=== PATIENT | female | born 1940 | race Caucasian/White ===

== ENCOUNTER → 2020-09-25 13:31 | Outpatient (CLI) | payer MEDICARE, SELFPAY ==
--- NOTE | 2020-09-25 | DI.US.S_ITS ---
PROCEDURE: US BREAST RT LIMITED COMPARISON: None. INDICATIONS: RIGHT BREAST PALPABLE FINDINGS: IMPRESSION: Dictated by: Jacquie Mandel MD, PhD on 10/08/2020 at 14:56 Approved by: Jacquie Mandel MD, PhD on 10/08/2020 at 14:56
--- NOTE | 2020-09-25 | DI.MG.S_ITS ---
BILATERAL DIGITAL DIAGNOSTIC MAMMOGRAM 3D/2D: 09/25/2020 CLINICAL: Right breast mass. Baseline exam. No prior exams were available for comparison. The tissue of both breasts is heterogeneously dense. This may lower the sensitivity of mammography. There is an irregular asymmetry with an indistinct margin and grouped pleomorphic calcifications in the right breast at 11 o'clock posterior depth. This correlates as palpated, with area of clinical concern, and skin marker. There is architectural distortion associated with the asymmetry. No other significant masses, calcifications, or other findings are seen in either breast. IMPRESSION: INCOMPLETE: NEEDS ADDITIONAL IMAGING EVALUATION The irregular asymmetry in the right breast is indeterminate. An ultrasound is recommended for further evaluation and is scheduled to immediately follow this examination. This exam was interpreted at Station ID: [id number]. NOTE: For mammograms, a report in lay terms will be sent to the patient. Approximately 15% of breast malignancies will not be visualized mammographically. In the management of a palpable breast mass, a negative mammogram must not discourage biopsy of a clinically suspicious lesion. Electronically Signed By: Ponce Garcia M.D. aty/:09/25/2020 15:49:55 ACR BI-RADS Category 0: Incomplete [id number]
== END ==
PROVIDERS: PCP Family Medicine; Referring Provider Nurse Practitioner Family; Visit Provider Nurse Practitioner Family
DX: N63.11 Unspecified lump in the right breast, upper outer quadrant; R59.0 Localized enlarged lymph nodes
CPT/HCPCS: 76642; 77066; G0279

== ENCOUNTER → 2020-10-08 12:51 | Outpatient (CLI) | payer MEDICARE, SELFPAY ==
--- NOTE | 2020-10-08 | DI.US.S_ITS ---
ULTRASOUND GUIDED BIOPSY RIGHT BREAST USING VACUUM DEVICE WITH MARKING DEVICE INSERTED AND POST MAMMOGRAPHIC IMAGIN10/08/2020 CLINICAL: Right axillary node biopsy. PATIENT CONSENT: Risks (minor bleeding, infection, vasovagal reaction and repeat procedure), benefits and alternatives were explained to the patient and written informed consent was obtained. Correlation is made to exams dated: 09/25/2020 ultrasound, 09/25/2020 mammogram, 10/08/2020 ultrasound biopsy, 10/08/2020 ultrasound biopsy, and 10/08/2020 mammogram - [facility]. An ultrasound guided biopsy using real-time ultrasound was performed for the irregular shaped mass located in the right breast at 10 o'clock middle depth. This was described on the previous ultrasound report. The skin was prepped in the usual manner. Local anesthetic was administered to the access site. A skin michael was made in the breast. The abnormality was approached from the lateral aspect. A 13 gauge biopsy needle was placed adjacent to the abnormality under ultrasound guidance. Once the needle was documented to be in the correct location, three specimens were obtained using the Mammotome biopsy system. A vision biopsy clip was inserted into the biopsy cavity. Post procedure mammographic imaging demonstrates the location device resides in the targeted area. The specimens were sent to the laboratory for pathological analysis. IMPRESSION: ULTRASOUND GUIDED BIOPSY MALIGNANT Ultrasound guided biopsy of the mass in the right breast at 10 o'clock middle depth was successful. Pathology indicates malignant invasive ductal carcinoma (ID). Pathology results are concordant with imaging findings. A surgical/oncologic consultation is recommended. This exam was interpreted at Station ID: [id number]. Jacquie Adamson M.D. [facility] [place]/:10/14/2020 11:23:12
--- NOTE | 2020-10-08 | PATH_ITS ---
[facility] Accession Number: [id number] . 01 Material submitted: . PART A: breast - RIGHT BREAST MASS 10:00 8CMFN PART B: breast - RIGHT AXILLARY LYMPH NODE . 01 Diagnosis: A. Right Breast Mass, 10 o'clock, 8 cm from the Nipple, Biopsy: Invasive (ductal) carcinoma, grade 3 of 3 ([place] combined histologic grade, total score 9/9), with the following features: 1. Nuclear pleomorphism: High. (3/3) 2. Mitotic rate: High. (3/3) 3. Tubular differentiation: None. (3/3) 4. Size of invasive carcinoma: Present on four cores, single largest dimension of at least 8 mm in this sample. 5. Ductal carcinoma in situ: Absent. 6. Calcifications: Absent. 7. Lymphatic invasion: Absent in this specimen. 8. Prognostic markers: - Estrogen receptor status: Positive (>98%, Strong). - Progesterone receptor status: Positive (>85%, Intermediate). - HER2 status: Negative for protein overexpression by immunohistochemistry (0). . B. Designated as Right Axillary Lymph Node, Biopsy: Carcinoma involving fibrous tissue. No lymph node tissue identified; see comment. . COMMENT: B. The carcinoma in parts A and B are histologically similar. [facility] 10/11/2020 1441 Local . 01 Electronically signed: Neo Garcia MD, Pathologist NPI- [id number] . 01 Gross description: . Received in two formalin-filled containers, both labeled with the patient's name. . A. In a container labeled RT #1 breast 10 o'clock, the specimen is received with a plastic filter in container, sample loose in container and consists of four yellow-lewis, cylindrical-shaped portions of tissue with an average diameter of 0.1-0.3 cm and range in length from 0.4 cm to 0.8 cm. The specimen is entirely submitted in cassette A. B. In a container labeled #2, are two fragments of light thomas-lewis tissue that range in size from 0.1 x 0.1 x 0.1 cm to 0.4 x 0.1 x 0.1 cm, totally submitted in cassette B. . Possible collection date and time per requisition: 10/08/20 at 1418. Total fixation time: Approximately 14 hours. ([id number]) /[place] 10/09/2020 0228 Local . 01 Microscopic: . An immunohistochemical panel is performed on block A1 in order to assess the invasive carcinoma, with appropriately staining external controls. The invasive carcinoma shows the following immunoprofile: . GATA3: Positive. GCDFP-15: Negative. Mammaglobin: Variably positive. E-cadherin: Positive (membranous staining pattern, arguing against lobular phenotype). Beta-catenin: Positive (membranous staining pattern, arguing against lobular phenotype). . Predictive marker immunohistochemical studies are performed on block A1 with the invasive carcinoma showing the following results: . Estrogen receptor (SP1): Positive (more than 98% of tumor cells, Strong staining intensity). Progesterone receptor (1E2): Positive (more than 85% of tumor cells, Intermediate staining intensity). Her2 (4B5): Negative for overexpression by immunohistochemistry (0). . Internal controls for ER and MI: Not applicable (normal breast tissue is not seen). Cold ischemic time is <5 minutes. The scoring criteria for breast biomarkers by immunohistochemistry is based on the ASCO/CAP guidelines (Oniel AC et al, J Clin Oncol: 2018 Jan 18;36(20):6445-4987 and Caitlyn ME et al, Arch Pathol Lab Med: 2009;134(6):907-22). Deparaffinized sections of formalin fixed tissue (along with appropriate positive controls) are incubated with the above antibody(s). Using the automated [place] stainer, tissue is incubated with the designated antibody which is then localized by a non-biotin, dual polymer detection system. The external controls are reviewed for appropriate reactivity and found to be adequate. Results on the target cell population are indicated above. These tests have not been validated on decalcified tissue. This test was developed and its performance characteristics determined by [facility]. It has not been cleared or approved by the U.S. Food and Drug Administration. The FDA has determined that such clearance or approval is not necessary. This test is used for clinical purposes. It should not be regarded as investigational or for research. . 01 Pathologist provided ICD-10: C50.911 . 01 CPT . 899962, 976049, K81878, E97948, 239872, 297252, 469759 Performed at: [address] [id number] MD Max Christianson MD Phone: [phone]
--- NOTE | 2020-10-08 | DI.US.S_ITS ---
ULTRASOUND GUIDED BIOPSY RIGHT BREAST WITH MARKING DEVICE INSERTED AND POST DIGITAL MAMMOGRAPHIC IMAGIN10/08/2020 CLINICAL: Right breast mass. PATIENT CONSENT: Risks (minor bleeding, infection, vasovagal reaction and repeat procedure), benefits and alternatives were explained to the patient and written informed consent was obtained. Correlation is made to exams dated: 09/25/2020 ultrasound, 09/25/2020 mammogram, 10/08/2020 ultrasound biopsy, and 10/08/2020 mammogram - [facility]. An ultrasound guided biopsy using real-time ultrasound was performed for the oval lymph node located in the right axillary tail. This was described on the previous ultrasound report. The skin was prepped in the usual manner. Local anesthetic was administered to the access site. A skin michael was made in the breast. A 20 gauge biopsy needle was placed adjacent to the abnormality under ultrasound guidance. Once the needle was documented to be in the correct location, four specimens were obtained using 20 gauge Tem[place] biopsy needle. A Vision biopsy clip was inserted into the biopsy cavity. A skin adhesive and a sterile dressing were applied to the access site. Post procedure digital mammographic imaging demonstrates the location device at the targeted area. The specimens were sent to the laboratory for pathological analysis. IMPRESSION: ULTRASOUND GUIDED BIOPSY MALIGNANT Ultrasound guided biopsy of the lymph node in the right axillary tail was successful. Pathology indicates Carcinoma involving fibrous tissue. No lymph node tissue identified; see comment. Pathology results are concordant with imaging findings. A surgical/oncologic consultation is recommended. This exam was interpreted at Station ID: [id number]. Jacquie Adamson M.D. [facility] [place]/:10/14/2020 11:30:37
--- NOTE | 2020-10-08 | DI.MG.S_ITS ---
UNILATERAL RIGHT DIGITAL DIAGNOSTIC MAMMOGRAM POST-NEEDLE BIOPSY: 10/08/2020 CLINICAL: Right breast mass and axillary lymphadenopathy. Comparison is made to exams dated: 09/25/2020 ultrasound and 09/25/2020 mammogram - [facility]. The tissue of right breast is heterogeneously dense. This may lower the sensitivity of mammography. There is a marker clip in the appropriate position in the right breast at 10 o'clock middle depth. This marker clip placement is at the biopsy site. This correlates with ultrasound findings. Marker clip placed at right axillary lymph node biopsy site cannot be imaged by mammography due to the far posterior position of the node in the right axilla. Ultrasound evaluation demostrated the clip at the node biopsy site IMPRESSION: POST PROCEDURE MAMMOGRAM FOR MARKER PLACEMENT There was a successful marker clip placement in the right breast middle depth at site of breast biospy. Marker clip placed at site of right axillary node biopsy is not identified by mammography. This exam was interpreted at Station ID: [id number]. NOTE: For mammograms, a report in lay terms will be sent to the patient. Approximately 15% of breast malignancies will not be visualized mammographically. In the management of a palpable breast mass, a negative mammogram must not discourage biopsy of a clinically suspicious lesion. Electronically Signed By: Jacquie Mandel M.D. [facility] [place][note 2]/:10/08/2020 14:52:55 ACR BI-RADS Category Post-procedure mammogram for marker placement
== END ==
PROVIDERS: PCP Family Medicine; Referring Provider Nurse Practitioner Family; Visit Provider Nurse Practitioner Family
DX: C50.911 Malignant neoplasm of unspecified site of right female breast (principal)
CPT/HCPCS: 19083; 38505; 76942; 77065

== ENCOUNTER 2021-09-29 19:15 | Emergency (ER) | payer MEDICARE, SELFPAY ==
[2021-09-29] VITALS (10 sets, daily range): BP systolic 112–169; BP diastolic 55–80; PULSE 72–92; RESP 18; TEMP 36.3; O2SAT 88–100; BMI 23.6
--- NOTE | 2021-09-29 19:19 | DI.RAD.S_ITS ---
PROCEDURE: XR SHOULDER RT MIN 2V INDICATIONS: Trauma, fall with pain TECHNIQUE: 3 views of the shoulder were acquired. COMPARISON: None. FINDINGS: There is a spiral fracture of the humeral diaphysis in addition to comminuted fractures in the proximal humeral metadiaphysis including fractures in the surgical neck which may extend into the articular surface. There is a suspected lucency representing fracture also involving the inferior glenoid. IMPRESSION: Multiple fractures of the humerus including a spiral displaced fracture of the humeral diaphysis and a more proximal comminuted humeral neck fracture. Suspected glenoid fracture. Dictated by: Shankar Betancourt M.D. on 09/29/2021 at 19:51 Approved by: Shankar Betancourt M.D. on 09/29/2021 at 19:52
--- NOTE | 2021-09-29 19:19 | DI.RAD.S_ITS ---
PROCEDURE: XR ELBOW RT MIN 3V INDICATIONS: Trauma, fall with elbow pain TECHNIQUE: 3 views of the elbow were acquired. COMPARISON: None. FINDINGS: Limited study with no true lateral view of the elbow. Spiral fracture of the humeral diaphysis and partially visualized comminuted proximal humerus fractures involving the humeral head and neck. IMPRESSION: No acute pathology in the elbow identified, with caveat that this exam is of limited diagnostic utility with regard to the elbow. Humerus fractures as described separately. Dictated by: Shankar Betancourt M.D. on 09/29/2021 at 19:58 Approved by: Shankar Betancourt M.D. on 09/29/2021 at 19:58
--- NOTE | 2021-09-29 19:21 | ED.FALL ---
HPI - Fall General Chief Complaint: Fall Stated Complaint: GLF Time Seen by Provider: 09/29/21 19:19 History of Present Illness HPI Narrative: 81F nonsmoker with a history of CAD presents by [facility] for evaluation of a ground level fall resulting in R arm injury. She states that she was working with some laundry when she turned and tripped and fell on something on the ground and landed on her right shoulder. She denies any prodromal symptoms such as dizziness, weakness or lightheadedness. She denies any head neck or back injury. She has significant pain in her right upper arm with any range of motion but it improves when she does not move. She is activated as a modified trauma given her age and suspicion of injury Related Data Home Medications Medication Instructions Recorded Confirmed ASPIRIN (Aspirin EC) 81 mg PO BID #0 05/21/11 omega 8-irh-iia-fish oil 1,000 mg 1,000 mg TID #0 05/21/11 (120 mg-180 mg) capsule (Fish Oil) CHOLECALCIFEROL (VITAMIN D) 2,300 units PO QDAY #0 02/10/13 vitamin E 400 unit capsule 400 unit PO QDAY #0 11/03/16 [TUMERIC] #0 01/18/17 multivitamin (Multiple Vitamins) 1 tab PO QDAY #0 01/18/17 Previous Rx's Medication Instructions Recorded levothyroxine 75 mcg tablet 0.075 mg PO QAM #45 tab 01/19/17 (Synthroid) nitroglycerin 0.4 mg sublingual 0.4 mg SUBLINGUAL PRN #100 odt 03/22/17 tablet (Nitrostat) hydrocodone 5 mg-acetaminophen 325 1 tab PO Q4-6H PRN #20 tab 09/30/21 mg tablet Allergies Allergy/AdvReac Type Severity Reaction Status Date / Time risedronate sodium Allergy Severe MYALGIAS Verified 09/29/21 22:12 Review of Systems Review of Systems Narrative: GENERAL: Denies chills, fatigue, malaise, fever, sweats. HEENT: Denies sinus pain, ear pain, sore throat, difficulty swallowing, dizziness. RESPIRATORY: Denies dyspnea, cough, wheezing, hemoptysis, sputum. CARDIOVASCULAR: Denies chest pain, palpitations, orthopnea, edema, GASTROINTESTINAL: Denies nausea, vomiting, abdominal pain, diarrhea, constipation, melena. : Denies dysuria, frequency, incontinence, hematuria, urinary retention. MUSCULOSKELETAL: see HPI SKIN: Denies rash, skin lesions, or other NEUROLOGIC: Denies weakness, headache, numbness, change in speech, confusion, seizures, incoordination. PSYCHIATRIC: No concerning psychosocial issues. 12 point review of systems is negative except for those stated above Patient History Surgical History History of cataract removal with insertion of prosthetic lens History of cataract removal with insertion of prosthetic lens History of tonsillectomy Family History Father Diabetes mellitus Mental health problem Grandfather Heart disease Macular degeneration Mother Heart disease Hypertension High cholesterol Macular degeneration Sister Age: 89 Diabetes mellitus Stroke Exam Narrative Exam Narrative: GENERAL: [81 year old patient appears stated age. Well-developed patient, in mild distress. GCS 15 HEAD: Atraumatic. Normocephalic. EYES: Pupils equal round and reactive. Extraocular motions intact. No scleral icterus. No injection or drainage. ENT: Nose without bleeding, purulent drainage. Throat without erythema, tonsillar hypertrophy or exudate. Airway patent. NECK: Trachea midline. Non tender CARDIOVASCULAR: Regular rate and rhythm without murmurs, gallops, or rubs. RESPIRATORY: Clear to auscultation. Breath sounds equal bilaterally. No wheezes, rales, or rhonchi. GASTROINTESTINAL: Abdomen soft, non-tender, nondistended. EXTREMITIES: Right upper extremity with mild swelling, significantly tender to palpate in proximal and midshaft humerus, tenderness and elbow as well, no pain or swelling in forearm, wrist or fingers. She has full strength with abduction of fingers and wrist extension. Sensation is intact. Compartments are soft BACK: Nontender without deformity or crepitance. No flank tenderness. NEURO: AOx3. SKIN: No rash or erythema of visible areas Initial Vital Signs Initial Vital Signs: Vital Signs Temperature 97.4 F L 09/29/21 19:32 Pulse Rate 77 09/29/21 19:32 Respiratory Rate 18 09/29/21 19:32 Blood Pressure 169/72 H 09/29/21 19:32 Pulse Oximetry 100 09/29/21 19:32 Procedures Orthopedic Splinting/Casting Injury #1: Side: right Upper Extremity Injury Location: shoulder and upper arm Upper Extremity Immobilizer: sling/shoulder immobilizer and sugar tong splint (coaptation) Post splinting neuro exam: intact Post splinting vascular exam: intact Placed by: Nursing Course Orders Ordered: Discontinued Medications Hydromorphone HCl (Hydromorphone 0.5 Mg Inj) 0.5 mg IV NOW ONE Stop: 09/29/21 20:57 Last Admin: 09/29/21 21:00 Dose: 0.5 mg Documented by: VALORIE Ondansetron HCl (Ondansetron 4 Mg Odt) 4 mg SL NOW ONE Stop: 09/30/21 07:21 Last Admin: 09/30/21 07:26 Dose: 4 mg Documented by: ABILIO Oxycodone/Acetaminophen (Oxycodone/Acetaminophen 5/325 Tablet) 1 tab PO NOW ONE Stop: 09/29/21 22:51 Last Admin: 09/30/21 07:32 Dose: Not Given Documented by: ABILIO Consultations Consultation #1: discussed with public relations analyst ortho (Radha). He has reviewed history, physical, and images. Recommends coaptation splint, sling, pain medications, return precautions and follow up instructions for his office. Vital Signs Vital signs: Vital Signs - 8 hr 09/29/21 23:00 09/29/21 23:30 09/30/21 00:00 Pulse Rate 76 76 76 Blood Pressure 108/53 L Pulse Oximetry 88 L 95 97 09/30/21 00:30 09/30/21 01:06 09/30/21 01:30 Pulse Rate 71 72 73 Blood Pressure Pulse Oximetry 100 96 97 09/30/21 02:00 09/30/21 02:30 09/30/21 03:00 Pulse Rate 74 72 78 Blood Pressure Pulse Oximetry 98 97 95 09/30/21 03:30 09/30/21 04:00 09/30/21 04:30 Pulse Rate 69 74 74 Blood Pressure 112/55 L Pulse Oximetry 98 97 96 09/30/21 05:00 09/30/21 05:30 09/30/21 06:00 Pulse Rate 82 80 83 Blood Pressure Pulse Oximetry 97 97 97 MDM - Fall Lab Data Result diagrams: 09/29/21 20:47 09/29/21 20:47 Labs: Lab Results 03/09/29/21 09/29/21 Range/Units 20:15 20:47 20:47 WBC 9.7 (4.5-11.0) X10^3/uL RBC 4.86 (4.0-5.2) X10^6/uL Hgb 13.5 (12.0-16.0) g/dL Hct 40.8 (36-46) % MCV 83.9 (80-100) fL MCH 27.8 (26-34) PG MCHC 33.2 (30-36) % RDW 14.0 (11.6-14.8) % Plt Count 180 (150-400) X10^3/uL Neut % (Auto) 83.2 H (50-75) % Lymph % (Auto) 10.5 L (25-40) % [place] % (Auto) 5.9 (3-14) % Eos % (Auto) 0.1 L (2-4) % Baso % (Auto) 0.3 (0-2) % Neut # (Auto) 8100 H (8514-3388) /uL Lymph # (Auto) 1000 L (4475-4860) /uL [place] # (Auto) 600 (0-900) /uL Eos # (Auto) 0 (0-450) /uL Baso # (Auto) 0 (0-100) /uL Sodium 136 L (137-145) mmol/L Potassium 3.4 (3.4-5.1) mmol/L Chloride 103 (98-107) mmol/L Carbon Dioxide 25 (22-32) mmol/L BUN 18 H (7-17) mg/dL Creatinine 0.64 (0.52-1.04) mg/dL Estimated GFR > 60.0 (>60) mL/min BUN/Creatinine Ratio 28.1 H (6-22) Glucose 132 H (80-110) mg/dL Calcium 9.7 (8.4-10.2) mg/dL Total Bilirubin 0.6 (0.2-1.3) mg/dL AST 31 (14-36) IU/L ALT 23 (<35) IU/L Alkaline Phosphatase 70 (38-126) U/L Total Protein 7.3 (6.3-8.2) g/dL Albumin 4.5 (3.5-5.0) g/dL Globulin 2.8 (1.7-4.1) g/dL Albumin/Globulin Ratio 1.6 (1.0-2.8) SARS-CoV-2 (PCR) Negative (Negative) Imaging Data Extremity x-ray #1: Radiologist's Impression: [address] [address] XRay Report Signed Patient: Judith Anderson MR#: [id number] : 1940 Acct:[id number] Age/Sex: 81 / F Date of Service: 09/29/21 Loc: ED Accession Number: [id number] ?? Procedure: XR shoulder RT min 2V Ordering Provider: Clarence Michele D.O. PROCEDURE:? XR SHOULDER RT MIN 2V ? INDICATIONS:? Trauma, fall with pain ? TECHNIQUE:? 3 views of the shoulder were acquired.? ? COMPARISON:? None. ? FINDINGS:? ? There is a spiral fracture of the humeral diaphysis in addition to comminuted fractures in the proximal humeral metadiaphysis including fractures in the surgical neck which may extend into the articular surface.? There is a suspected lucency representing fracture also involving the inferior glenoid. ? IMPRESSION: ? Multiple fractures of the humerus including a spiral displaced fracture of the humeral diaphysis and a more proximal comminuted humeral neck fracture. ? Suspected glenoid fracture.? ? Dictated by: Shankar Betancourt M.D. on 09/29/2021 at 19:51 ? ? Approved by: Shankar Betancourt M.D. on 09/29/2021 at 19:52 ? MDM Narrative Medical decision making narrative: Patient with ground level fall resulting in complex with right humeral fracture. She is observed over the course of the night and has no evidence of compartment syndrome or radial nerve injury. Frequent checks resulted in intact sensation, strength, ability to extend at the wrist. I have been in contact with orthopedist for recommendations regarding splinting, suggest discharge with follow-up. Return precautions discussed and questions answered to their apparent satisfaction Discharge Plan Departure Patient Disposition: Home Clinical Impression: Fracture, humerus Instructions: Humeral Shaft Fracture Activity Restrictions/Additional Instructions: *You have been diagnosed with [right proximal humerus and midshaft fracture with comminution and displacement *What to do: *Please continue to take your regular medications as directed. [ x] New medication prescriptions sent to your pharmacy: [ ] [ ] New medication written as a paper prescription [x] Tylenol and occasional Motrin for pain *Please follow up with [Radha] of [facility] in 2-3 days, call for an appointment. Let them know you were seen in the Emergency Department and that we ask that you be seen in follow up. We will electronically transmit a record of today's note if your PCP is in our system *Return to Emergency Department if you should have any new, worsening or concerning symptoms, such as [worsening pain, significant swelling, cold extremities, numbness, tingling, weakness or other bothersome symptoms Splint Care: Keep splint clean and dry. Elevated affected body part to decrease swelling. OK to use ice pack on the affected body part. Use for 15-20 minutes each time, for 5-6x per day. If you develop worsening pain, numbness, tingling, discoloration of the affected body part, loosen the splint by loosening the BRITTNEY wrap, and either see your doctor for an urgent re-assessment, or return to the Emergency Department. Return to the Emergency Department for any new or worsening symptoms. You have been prescribed a short course of narcotic medications. These are potentially dangerous and addictive medications that should be used carefully. While on these medications you cannot drive or operate heavy machinery. Additionally, you cannot sign legal documents or perform any duties such as this. 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 Please understand that we cannot provide further refills of narcotics or controlled substances through the ED and your pain management will need to be through your Primary Care Provider Prescriptions: New hydrocodone-acetaminophen 5-325 mg tablet 1 tab PO Q4-6H PRN (Reason: pain) Qty: 20 0RF No Action ASPIRIN (Aspirin EC) 81 mg PO BID Qty: 0 0RF omega 8-qiv-jmi-fish oil [Fish Oil] 1,000 MG capsule 1,000 mg TID Qty: 0 0RF CHOLECALCIFEROL (VITAMIN D) 2,300 units PO QDAY Qty: 0 0RF vitamin E 400 UNIT capsule 400 unit PO QDAY Qty: 0 0RF multivitamin [Multiple Vitamins] 1 EACH tablet 1 tab PO QDAY Qty: 0 0RF [TUMERIC] Qty: 0 0RF levothyroxine [Synthroid] 75 MCG tablet 0.075 mg PO QAM Qty: 45 0RF nitroglycerin [Nitrostat] 0.4 MG tablet, sublingual 0.4 mg Sublingual PRN Qty: 100 0RF Referrals: Flakito Garcia MD [Physician] - Dillan Kurtz MD [Physician] -
[2021-09-29 20:56] LABS: Add Manual Diff / Slide Review NO; Basophils Absolute Auto 0 /uL (0-100); Basophils Percent Auto 0.3 % (0-2); Eosinophils Absolute Auto 0 /uL (0-450); Eosinophils Percent Auto 0.1 % (2-4); Hematocrit 40.8 % (36-46); Hemoglobin 13.5 g/dL (12.0-16.0); Lymphocytes Absolute Auto 1000 /uL (1100-4500); Lymphocytes Percent Auto 10.5 % (25-40); Mean Corpuscular HGB Conc 33.2 % (30-36); Mean Corpuscular Hemoglobin 27.8 PG (26-34); Mean Corpuscular Volume 83.9 fL (80-100); Monocytes Absolute Auto 600 /uL (0-900); Monocytes Percent Auto 5.9 % (3-14); Neutrophils Absolute Auto 8100 /uL (1500-7000); Neutrophils Percent Auto 83.2 % (50-75); Platelet Count 180 X10^3/uL (150-400); Red Blood Cell Count 4.86 X10^6/uL (4.0-5.2); White Blood Cell Count 9.7 X10^3/uL (4.5-11.0)
[2021-09-29 20:59] LABS: COVID19 -Nasal RAPID Negative (Negative)
[2021-09-29] MEDS: HYDROMORPHONE 0.5 MG INJ IV (21:00)
[2021-09-29 21:17] LABS: Alanine Aminotransferase 23 IU/L (<35); Albumin 4.5 g/dL (3.5-5.0); Albumin Globulin Ratio 1.6 (1.0-2.8); Alkaline Phosphatase 70 U/L (38-126); Aspartate Aminotransferase 31 IU/L (14-36); BUN Creatinine Ratio 28.1 (6-22); Bilirubin Total 0.6 mg/dL (0.2-1.3); Blood Urea Nitrogen 18 mg/dL (7-17); Calcium 9.7 mg/dL (8.4-10.2); Carbon Dioxide 25 mmol/L (22-32); Chloride 103 mmol/L (98-107); Estimated Glomerular Filt Rate > 60.0 mL/min (>60); Globulin 2.8 g/dL (1.7-4.1); Glucose 132 mg/dL (80-110); HEMOLYSIS < 15 (0-50); Potassium 3.4 mmol/L (3.4-5.1); Sodium 136 mmol/L (137-145); Total Protein 7.3 g/dL (6.3-8.2)
--- NOTE | 2021-09-29 22:53 | PC.NURSE ---
pt was able to stand and pivot and transfer to hospital bed without a lot discomfort, pt given warm blankets and lights dimmed
[2021-09-30] VITALS (14 sets, daily range): BP systolic 108–112; BP diastolic 53–55; PULSE 69–83; O2SAT 95–100
[2021-09-30] MEDS: ONDANSETRON 4 MG ODT SL (07:26)
== END 2021-09-30 07:33 | disposition home or self-care (01) ==
PROVIDERS: Emergency Provider Emergency Medicine; PCP Nurse Practitioner Family
DX: S42.341A Displaced spiral fracture of shaft of humerus, right arm, initial encounter for closed fracture (principal); S42.291A Other displaced fracture of upper end of right humerus, initial encounter for closed fracture; W01.10XA Fall on same level from slipping, tripping and stumbling with subsequent striking against unspecified object, initial encounter; Z20.822 Contact with and (suspected) exposure to COVID-19
CPT/HCPCS: 73030; 73080; 80053; 85025; 87635; 96374; 99284; C9803; J1170

== ENCOUNTER → 2022-10-13 13:02 | Outpatient (CLI) | payer MEDICARE, SELFPAY ==
--- NOTE | 2022-10-13 | DI.MG.S_ITS ---
BILATERAL DIGITAL DIAGNOSTIC MAMMOGRAM 3D/2D: 10/13/2022 CLINICAL: Right breast lumps. Comparison is made to exams dated: 10/25/2020 breast MRI - [facility], 10/08/2020 ultrasound biopsy, 10/08/2020 ultrasound biopsy, 10/08/2020 mammogram, and 09/25/2020 mammogram - [facility]. Both breasts are heterogeneously dense, which may obscure small masses (category c / 51-75% glandular tissue). There is a 1.1 cm oval mass in the right breast at 11 o'clock middle depth. This correlates as palpated. There also is a 0.5 cm mass in the right breast at 11 o'clock posterior depth. This correlates as an incidental finding. Additionally, there is a focal asymmetry in the right axillary tail which correlates as palpated, but is only partialy visualized. No other significant masses, calcifications, or other findings are seen in either breast. IMPRESSION: INCOMPLETE: NEEDS ADDITIONAL IMAGING EVALUATION The 1.1 cm oval mass in the right breast at 11 o'clock middle depth is indeterminate. The 0.5 cm mass in the right breast at 11 o'clock posterior depth is indeterminate. The focal asymmetry in the right axillary tail is indeterminate. A targeted ultrasound of the right breast is recommended and will be performed immediately following this exam. This exam was interpreted at Station ID: [id number]. NOTE: For mammograms, a report in lay terms will be sent to the patient. Approximately 15% of breast malignancies will not be visualized mammographically. In the management of a palpable breast mass, a negative mammogram must not discourage biopsy of a clinically suspicious lesion. Electronically Signed By: Fozia Burciaga M.D. lk/:10/13/2022 15:11:16 ACR BI-RADS Category 0: Incomplete 3340F
--- NOTE | 2022-10-13 | DI.US.S_ITS ---
PROCEDURE: US SOFT TISSUE HEAD AND NECK INDICATIONS: Unspecified lump in unspecified breast; Neck mass TECHNIQUE: Real-time scanning was performed of the neck region of interest, with image documentation. COMPARISON: [facility], US, US BREAST RT LIMITED, 10/13/2022, 14:36. [facility], CT, CT CHEST ABDOMEN PELVIS WITH CONTRAST, 10/25/2020, 14:06. FINDINGS: At the palpable abnormality at the right posterior upper neck there is a subcutaneous nodule measuring 1.1 x 1 x 0.7 cm. There is posterior acoustic shadowing. No internal vascularity is seen. No abnormality is seen on the contralateral left neck for comparison. IMPRESSION: Subcutaneous nodule measuring 1.1 cm is indeterminate. Note: Right axillary ultrasound highly suspicious for metastatic breast cancer. Consider CT neck with IV contrast or PET/CT for further evaluation. Dictated by: Murray Adamson M.D. on 10/13/2022 at 16:44 Approved by: Murray Adamson M.D. on 10/13/2022 at 16:46
--- NOTE | 2022-10-13 | DI.US.S_ITS ---
ULTRASOUND OF RIGHT BREAST: 10/13/2022 CLINICAL: Palpable right breast lump. Comparison is made to exams dated: 10/13/2022 mammogram - [facility], 11/11/2020 specimen, 10/25/2020 breast MRI - [facility], 10/08/2020 ultrasound biopsy, 10/08/2020 ultrasound biopsy, and 09/25/2020 ultrasound - [facility]. Color flow and real-time ultrasound of the right breast were performed on the areas of interest. Yan scale images of the real-time examination were reviewed. There is a 1.4 cm oval mass in the right breast at 11 o'clock middle depth. This correlates as palpated and with mammography findings. There also is a 3.8 cm x 1.3 cm x 1 cm mass in the right axillary tail. This mass is hypoechoic. This correlates as palpated and with mammography findings. Additionally, there is a 0.5 cm round mass in the right breast at 11 o'clock posterior depth. This round mass is hypoechoic. IMPRESSION: SUSPICIOUS OF MALIGNANCY The 1.4 cm oval mass in the right breast at 11 o'clock middle depth is at a moderate suspicion for malignancy. An ultrasound guided biopsy is recommended. The 3.8 cm x 1.3 cm x 1 cm mass in the right axillary tail is at a moderate suspicion for malignancy. An ultrasound guided biopsy is recommended. The 0.5 cm round mass in the right breast at 11 o'clock posterior depth likely represents an enlarged lymph node and is at a low suspicion for malignancy. This exam was interpreted at Station ID: [id number]. SUMMARY: This was discussed with the patient by the radiologist at the time of the exam. Electronically Signed By: Fozia hamilton/:10/13/2022 15:15:35 letter sent: Biopsy Required Ultrasound BI-RADS: 4b Moderate suspicion of malignancy
== END ==
PROVIDERS: PCP Nurse Practitioner Family; Referring Provider Nurse Practitioner Family; Visit Provider Nurse Practitioner Family
DX: R22.1 Localized swelling, mass and lump, neck; N63.11 Unspecified lump in the right breast, upper outer quadrant; N63.31 Unspecified lump in axillary tail of the right breast
CPT/HCPCS: 76536; 76642; 77066; G0279

== ENCOUNTER → 2023-09-21 12:00 | Outpatient (CLI) | payer MEDICARE, SELFPAY ==
--- NOTE | 2023-09-21 12:04 | DI.MG.S_ITS ---
BILATERAL DIGITAL DIAGNOSTIC MAMMOGRAM 3D/2D POST LUMPECTOMY: 09/21/2023 CLINICAL: Patient has history of right breast cancer status post lumpectomy in 2020 with recurrence and repeat lumpectomy in 2022. Comparison is made to exams dated: 10/28/2022 mammogram - [facility], 10/13/2022 mammogram, 10/08/2020 mammogram, and 09/25/2020 mammogram - . Both breasts are heterogeneously dense, which may obscure small masses (category c / 51-75% glandular tissue). There are post surgical changes from prior right breast lumpectomy. Adjacent to the lumpectomy bed, there is a 1.0 cm oval mass with an obscured margin in the upper outer quadrant at posterior depth. Compared to prior mammogram on 10/13/2022, this mass has increased in size (previously measured 0.4 cm). No other significant masses, calcifications, or other findings are seen in either breast. IMPRESSION: INCOMPLETE: NEEDS ADDITIONAL IMAGING EVALUATION Status post right breast lumpectomy. Right breast 1.0 cm oval mass in the posterior upper outer quadrant adjacent to the lumpectomy bed. An ultrasound is recommended for further evaluation, which will need to be scheduled on a separate day. Findings and recommendations were conveyed to the patient during today's evaluation. This exam was interpreted at Station ID: [id number]. NOTE: For mammograms, a report in lay terms will be sent to the patient. Approximately 15% of breast malignancies will not be visualized mammographically. In the management of a palpable breast mass, a negative mammogram must not discourage biopsy of a clinically suspicious lesion. Electronically Signed By: Jeni Maldonado M.D., PH.D eb/:09/21/2023 14:34:15 Entry: - 09/22/2023 11:23:36 letter sent: Additional Imaging Needed ACR BI-RADS Category 0: Incomplete 3340F
== END ==
LOC: MAMMO 12:01
PROVIDERS: PCP Family Medicine; Referring Provider Family Medicine; Visit Provider Family Medicine
DX: Z85.3 Personal history of malignant neoplasm of breast (principal); Z08 Encounter for follow-up examination after completed treatment for malignant neoplasm; R92.8 Other abnormal and inconclusive findings on diagnostic imaging of breast; N63.11 Unspecified lump in the right breast, upper outer quadrant; R92.333 Mammographic heterogeneous density, bilateral breasts
CPT/HCPCS: 77066; G0279

== ENCOUNTER → 2023-11-17 12:34 | Outpatient (CLI) | payer MEDICARE, SELFPAY ==
--- NOTE | 2023-11-17 12:36 | DI.US.S_ITS ---
LIMITED SECONDLOOK ULTRASOUND OF RIGHT BREAST AND AXILLA: 11/17/2023 CLINICAL: Palpable right breast lump. Follow up from addtional views. Comparison is made to exams dated: 09/21/2023 mammogram - [facility], 10/28/2022 mammogram - [facility], 10/13/2022 ultrasound, 10/13/2022 mammogram, 09/25/2020 ultrasound, and 09/25/2020 mammogram - [facility]. Color flow and real-time ultrasound of the right breast 11 o'clock, and axilla regions were performed. Yan scale images of the real-time examination were reviewed. There is a 1.2 cm x 1.2 cm x 0.7 cm irregular mass with an indistinct margin in the right breast at 11 o'clock posterior depth 7 cm from the nipple. This irregular mass is hypoechoic. This correlates with mammography findings. There also is a new 0.6 cm x 0.4 cm x 0.8 cm oval mass with a circumscribed margin in the right axilla. This oval mass is hypoechoic with no fatty hilum. This correlates as palpated. Additionally, there is a new 0.6 cm x 0.3 cm x 0.6 cm oval mass with an indistinct margin within the skin of the right axilla. This oval mass is hypoechoic with posterior acoustic enhancement. This correlates as palpated. IMPRESSION: SUSPICIOUS OF MALIGNANCY The 1.2 cm x 1.2 cm x 0.7 cm irregular mass in the right breast at 11 o'clock posterior depth is at a high suspicion for malignancy. An ultrasound guided biopsy is recommended. The findings and recommendations were discussed with the patient by the onsite radiologist, Dr. Adamson, at the time of the exam. The new 0.6 cm x 0.4 cm x 0.8 cm oval mass in the right axilla is at a low suspicion for malignancy. An ultrasound guided biopsy is recommended. The new 0.6 cm x 0.3 cm x 0.6 cm oval mass within the skin of the right axilla has a differential diagnosis of a sebaceous cyst or a solid mass. Given the location predominantly within the skin, this finding would not be amenable to US-guided percutaneous biopsy. Recommend correlation with clinical findings and possible skin biopsy if indicated clinically. This exam was interpreted at Station ID: [id number]. Electronically Signed By: Bryan Jeffers M.D. ar/:11/17/2023 16:38:36 letter sent: Biopsy Required Ultrasound BI-RADS: 4c High suspicion of malignancy
== END ==
LOC: US 12:35
PROVIDERS: PCP Family Medicine; Referring Provider Family Medicine; Visit Provider Family Medicine
DX: C50.211 Malignant neoplasm of upper-inner quadrant of right female breast (principal); C50.611 Malignant neoplasm of axillary tail of right female breast; N63.11 Unspecified lump in the right breast, upper outer quadrant; N63.31 Unspecified lump in axillary tail of the right breast; Z85.3 Personal history of malignant neoplasm of breast; Z17.0 Estrogen receptor positive status [ER+]
CPT/HCPCS: 76642